=== PATIENT | male | born 1990 | race American Indian/Alaskan Native ===

== ENCOUNTER 2018-05-04 14:38 | Emergency (ER) | payer SELFPAY ==
[2018-05-04 14:49] VITALS: RESP 18
[2018-05-04 14:54] VITALS: BMI 19.6
[2018-05-04 16:20] LABS: BASO # 0.1 K/uL (0.0-0.2); BASO % 0.8 % (0.0-2.0); EOS % 0.6 % (0.0-4.0); LYMPH % 29.8 % (20.0-40.0); MEAN CELL VOLUME 88.9 fL (80.0-94.0); MEAN CORPUSCULAR HGB CONC 33.8 g/dL (33.0-37.0); MEAN PLATELET VOLUME 8.3 fL (7.2-11.7); MONO # 0.5 K/uL (0.0-0.8); MONO % 7.8 % (0.0-10.0); RBC 4.66 Mil/uL (4.40-5.90); WHITE BLOOD COUNT 6.6 K/uL (4.8-10.8)
[2018-05-04 16:39] LABS: URINE BACTERIA RARE (<OCC); URINE BILIRUBIN NEGATIVE (NEGATIVE); URINE BLOOD NEGATIVE (NEGATIVE); URINE CLARITY Clear (Clear); URINE COLOR Yellow (YELLOW); URINE GLUCOSE (UA) NORMAL (Normal); URINE LEUKOCYTE ESTERASE NEG Leu/uL (Negative); URINE PROTEIN NEGATIVE (NEGATIVE); URINE UROBILINOGEN NORMAL mg/dL (0.2-1.0)
[2018-05-04 16:39] LABS: ALB/GLOB RATIO 1.6 (1.0-2.1); ALBUMIN 4.9 g/dL (3.5-5.0); ALT/SGPT 31 U/L (21-72); AST/SGOT 33 U/L (17-59); BLOOD UREA NITROGEN 12 mg/dL (9-20); CALCIUM 9.7 mg/dl (8.6-10.4); GFR NON-AFRICAN AMERICAN > 60
[2018-05-04 17:03] LABS: BARBITURATES, UR NEGATIVE (NEGATIVE); BENZODIAZEPINES, UR NEGATIVE (NEGATIVE); OPIATES, UR NEGATIVE (NEGATIVE); PHENCYCLIDINE, UR NEGATIVE (NEGATIVE)
--- NOTE | 2018-05-04 17:44 | C.PDOC ---
History Of Present Illness 28-year-old male, is brought to the emergency department by EMS with complaints of pt acting out on the street. Patient was standing in the middle of the street wielding a stick. He denies any drug abuse, alcohol abuse or medical Hx. Time Seen by Provider: 05/04/18 15:08 Chief Complaint (Nursing): Psychiatric Evaluation Past Medical History Reviewed: Historical Data, Nursing Documentation, Vital Signs Vital Signs: Last Vital Signs Temp 98.7 F 05/04/18 17:56 Pulse 57 L 05/04/18 17:56 Resp 18 05/04/18 17:56 BP 119/77 05/04/18 17:56 Pulse Ox 96 05/04/18 18:17 - [facility] Procedures CLOSURE SKIN & SUBCUTANEOUS NEC (02/02/14) TETANUS TOXOID ADMINIST (02/02/14) Family History: States: No Known Family Hx - Social History Hx Tobacco Use: Yes Hx Alcohol Use: Yes Hx Substance Use: No - Immunization History Hx Tetanus Toxoid Vaccination: (15 yrs. ago) Hx Influenza Vaccination: Yes Review Of Systems Constitutional: Negative for: Fever Gastrointestinal: Negative for: Vomiting Psych: Negative for: Suicidal ideation, Withdrawal Physical Exam - Physical Exam Appears: Non-toxic, No Acute Distress, Agitated, Other (presybeterian in speech. ) Skin: Warm, Dry Head: Atraumatic, Normacephalic Eye(s): bilateral: Normal Inspection Nose: Normal Oral Mucosa: Moist Lips: Normal Appearing Neck: Normal ROM Chest: Symmetrical Cardiovascular: Rhythm Regular, No Murmur Respiratory: Normal Breath Sounds, No Accessory Muscle Use Gastrointestinal/Abdominal: Soft, No Tenderness Extremity: Normal ROM, No Deformity Neurological/Psych: Oriented x3, Normal Speech ED Course And Treatment - Laboratory Results Result Diagrams: 05/04/18 16:13 05/04/18 16:13 O2 Sat by Pulse Oximetry: 96 Pulse Ox Interpretation: Normal (RA) Medical Decision Making Medical Decision Making: Plan: * Bloodwork * UA * Crisis evaluation * Reassess and Disposition Disposition Counseled Patient/Family Regarding: Studies Performed, Diagnosis, Need For Followup - Disposition Disposition: HOME/ ROUTINE Disposition Time: 17:42 Condition: IMPROVED Instructions: Marijuana Use and Addiction Forms: [facility] (Y[place]i), General Discharge Instructions - POA Present On Arrival: None - Clinical Impression Clinical Impression: Psychosis - Scribe Statement The provider has reviewed the documentation as recorded by the Scribe (Melania Brewer) Provider Attestation: All medical record entries made by the Scribe were at my direction and personally dictated by me. I have reviewed the chart and agree that the record accurately reflects my personal performance of the history, physical exam, medical decision making, and the department course for this patient. I have also personally directed, reviewed, and agree with the discharge instructions and disposition.
[2018-05-04 17:58] VITALS: BP 119/77; PULSE 57; TEMP 98.7
[2018-05-04 18:16] VITALS: O2SAT 96
== END 2018-05-04 17:58 | disposition home or self-care (01) ==
LOC: C.ER 14:38
DX: F29 Unspecified psychosis not due to a substance or known physiological condition (principal); Z72.0 Tobacco use
CPT/HCPCS: 80053; 81001; 83735; 84100; 85025; 99284; G0480

== ENCOUNTER 2018-08-14 01:01 | Emergency (ER) | payer SELFPAY ==
[2018-08-14 01:01] VITALS: BMI 19.6
[2018-08-14] MEDS ORDERED: Clotrimazole 1% Cream 15 GM TUBE TOP STA (01:46)
[2018-08-14] MEDS ORDERED: Vitamin A/D oint 60G TP ONE (02:12)
[2018-08-14] MEDS ORDERED: Vitamins A & D Oint UD Foilpak ONE (02:14)
--- NOTE | 2018-08-14 03:21 | C.PDOC ---
History Of Present Illness 28 year old male presents to the ED c/o bilateral foot pain. Patient states he walks a lot and is always wearing boots. Patient request a cream for his feet. Patient denies fever, chills, injury, fall, trauma, weakness, numbness. Time Seen by Provider: 08/14/18 01:24 Chief Complaint (Nursing): Lower Extremity Problem/Injury History Per: Patient History/Exam Limitations: no limitations Onset/Duration Of Symptoms: Days Current Symptoms Are (Timing): Still Present Recent travel outside of the [place]: No Additional History Per: Patient - Ankle/Foot Description Of Injury: Other Past Medical History Reviewed: Historical Data, Nursing Documentation, Vital Signs Vital Signs: Last Vital Signs Temp 97.6 F 08/14/18 01:09 Pulse 78 08/14/18 01:09 Resp 22 08/14/18 01:09 BP 97/60 L 08/14/18 01:09 Pulse Ox 99 08/14/18 01:09 - Medical History PMH: No Chronic Diseases Surgical History: No Surg Hx - [facility] Procedures CLOSURE SKIN & SUBCUTANEOUS NEC (02/02/14) TETANUS TOXOID ADMINIST (02/02/14) Family History: States: Unknown Family Hx - Social History Hx Tobacco Use: Yes Hx Alcohol Use: Yes Hx Substance Use: No - Immunization History Hx Tetanus Toxoid Vaccination: No Hx Influenza Vaccination: No Hx Pneumococcal Vaccination: No Review Of Systems Constitutional: Negative for: Fever, Chills Respiratory: Negative for: Cough, Shortness of Breath Musculoskeletal: Positive for: Foot Pain Skin: Negative for: Rash Neurological: Negative for: Weakness, Numbness Physical Exam - Physical Exam Appears: Non-toxic, No Acute Distress Skin: Normal Color, Warm, Dry Head: Atraumatic, Normacephalic Eye(s): bilateral: Normal Inspection Neck: Normal ROM, Supple Chest: Symmetrical Cardiovascular: Rhythm Regular Respiratory: Normal Breath Sounds, No Rhonchi, No Wheezing Extremity: Normal ROM, No Tenderness, No Calf Tenderness, Capillary Refill (< 2 seconds), No Swelling, Other (extensive dry pealing skin to the dorsal aspect of bilateral feet. Extensive maceration in between toes and plantar aspect of toes. Calluses near heel and forefoot plantar aspect) Pulses: Left Dorsalis Pedis: Normal, Right Dorsalis Pedis: Normal Neurological/Psych: Oriented x3, Normal Speech, Normal Cognition, Normal Motor, Normal Sensation Gait: Steady ED Course And Treatment O2 Sat by Pulse Oximetry: 99 (ON RA) Pulse Ox Interpretation: Normal Progress Note: Patient was given betadine solution to wash his feet with, also given bacitracin cream to put in his feet. Antifungal cream not available in the ED at this time will give prescription for fill up to the patient and advised to follow up with Podiatry. 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 - Scribe Statement The provider has reviewed the documentation as recorded by the Scribe Sanju Breen All medical record entries made by the Scribe were at my direction and personally dictated by me. I have reviewed the chart and agree that the record accurately reflects my personal performance of the history, physical exam, medical decision making, and the department course for this patient. I have also personally directed, reviewed, and agree with the discharge instructions and disposition.
[2018-08-14 03:36] VITALS: BP 102/59; PULSE 79; RESP 16; TEMP 97.8
[2018-08-14 04:00] VITALS: O2SAT 99
== END 2018-08-14 05:19 | disposition home or self-care (01) ==
LOC: C.ER 01:01
DX: B35.3 Tinea pedis (principal)